=== PATIENT | male | born 1975 | race African-American/Black ===

== ENCOUNTER 2019-03-25 09:09 | Emergency (ER) | payer OTHER ==
[~2019-03-25] VITALS: Ht 175.3 cm; Wt 108.9 kg
[2019-03-25 10:11] LABS: ABSOLUTE NEUTROPHILS 1.8 thou/uL (1.4-8.2); BASOPHILS 1.3 % (0.0-2.0); EOSINOPHILS 1.8 % (0.0-3.0); HEMATOCRIT 43.3 % (42.0-52.0); HEMOGLOBIN 13.5 gm/dL (14.0-18.0); LYMPHOCYTES 54.6 % (24.0-44.0); MCH 26.1 pg (26.0-34.0); MCHC 31.1 g/dL (28.0-37.0); MCV 83.8 fL (80.0-100.0); MONOCYTES 9.6 % (1.0-8.0); PLATELET COUNT 212 thou/uL (150-400); POLYS 32.7 % (36.0-66.0); RBC 5.16 mil/uL (4.50-6.00); RDW 13.8 % (10.5-14.5); WBC 5.6 thou/uL (4.0-11.0)
[2019-03-25 10:20] LABS: ANION GAP 9 mmol/L (7-16); BUN 13 mg/dL (7-18); CALCIUM 8.5 mg/dL (8.5-10.1); CHLORIDE 106 mmol/L (98-107); CO2 26 mmol/L (21-32); GLUCOSE 106 mg/dL (74-106); POTASSIUM 3.2 mmol/L (3.5-5.1); SODIUM 141 mmol/L (136-145)
[2019-03-25 10:28] LABS: ALBUMIN 3.4 g/dL (3.4-5.0); APTT 32.9 Seconds (24.5-32.8); PROTIME 10.5 Seconds (9.3-11.4); SALICYLATE < 2.8 mg/dL (2.8-20.0); SGOT 27 U/L (15-37); SGPT 33 U/L (30-65); TOTAL BILIRUBIN 0.2 mg/dL (<0.1-1.0); TOTAL PROTEIN 6.8 g/dL (6.4-8.2)
[2019-03-25] MEDS ORDERED: NAPROSYN500 MG PO (11:34)
[2019-03-25 12:30] VITALS: BP 135/82
== END 2019-03-25 12:25 | disposition home or self-care (01) ==
LOC: ER 09:09
PROVIDERS: Emergency Medicine
DX: S16.1XXA Strain of muscle, fascia and tendon at neck level, initial encounter (principal); S20.212A Contusion of left front wall of thorax, initial encounter; E66.9 Obesity, unspecified; Z68.35 Body mass index [BMI] 35.0-35.9, adult; Z88.1 Allergy status to other antibiotic agents; V89.2XXA Person injured in unspecified motor-vehicle accident, traffic, initial encounter; Y92.89 Other specified places as the place of occurrence of the external cause; Y93.89 Activity, other specified; Y99.8 Other external cause status

== ENCOUNTER 2020-01-04 21:35 | Emergency (ER) | payer OTHER ==
[~2020-01-04] VITALS: Ht 175.3 cm; Wt 131.1 kg
[~2020-01-04 21:35] MED LIST: NAPROSYN500 MG PO
[2020-01-05] MEDS ORDERED: NAPROSYN500 MG PO (01:08)
[2020-01-05 01:20] VITALS: BP 133/92
== END 2020-01-05 01:20 | disposition home or self-care (01) ==
LOC: ER 21:35
DX: S80.02XA Contusion of left knee, initial encounter (principal); S20.212A Contusion of left front wall of thorax, initial encounter; S16.1XXA Strain of muscle, fascia and tendon at neck level, initial encounter; Z88.8 Allergy status to other drugs, medicaments and biological substances; V49.9XXA Car occupant (driver) (passenger) injured in unspecified traffic accident, initial encounter; Y93.89 Activity, other specified; Y92.89 Other specified places as the place of occurrence of the external cause; Y99.8 Other external cause status